=== PATIENT | female | born 2005 | race Caucasian/White ===

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

== ENCOUNTER 2024-11-06 19:59 | Emergency (ER) | payer SELFPAY ==
[~2024-11-06] VITALS: Ht 157.5 cm; Wt 57.6 kg
[2024-11-06] MEDS ORDERED: KETOROLAC TROMETHAMINE 30 MG/ML SDV IM ONE (20:25)
[2024-11-06] MEDS ORDERED: EXCEDRIN PO (21:35)
[2024-11-06] MEDS ORDERED: MECLIZINE25 M1 PO (21:35)
[2024-11-06 22:23] VITALS: BP 108/69
== END 2024-11-06 22:30 | disposition home or self-care (01) | DRG 103 ==
LOC: ED 19:59
DX: R51.9 Headache, unspecified (principal); R42 Dizziness and giddiness